=== PATIENT | female | born 1975 | race Caucasian/White ===

== ENCOUNTER 2024-10-15 09:51 | Emergency (ER) | payer BC ==
[~2024-10-15] VITALS: Ht 152.4 cm; Wt 50.8 kg
[2024-10-15 09:51] VITALS: TEMP 98.6
[2024-10-15 10:35] LABS: BASOPHILS % (AUTO) 0.5 % (0.0-2.0); EOSINOPHILS % (AUTO) 0.3 % (0.0-6.0); HEMATOCRIT 41 % (33-45); HEMOGLOBIN 14.2 g/dL (11.5-14.8); LYMPHOCYTES # (AUTO) 1.1 K/uL (0.8-4.8); LYMPHOCYTES % (AUTO) 11.8 % (20.0-44.0); MEAN CORPUSCULAR HEMOGLOBIN 33 PG (26.0-33.0); MEAN CORPUSCULAR HGB CONC 35 g/dl (31.0-36.0); MEAN CORPUSCULAR VOLUME 94 fL (82-100); MONOCYTES # (AUTO) 0.9 K/uL (0.1-1.30); NEUTROPHILS # (AUTO) 7.1 K/uL (1.8-8.9); NEUTROPHILS % (AUTO) 77.4 % (43.0-81.0); PLATELET COUNT (AUTO) 262 K/uL (150-450); RED BLOOD CELL COUNT(AUTO) 4.36 MIL/uL (4.0-5.2); RED CELL DISTRIBUTION WIDTH 11.9 % (11.5-15.0); WHITE BLOOD COUNT (AUTO) 9.1 K/uL (4.3-11.0)
[2024-10-15 10:36] LABS: ERYTHROCYTE SEDIMENTATION RATE 2 MM/HR (0-30)
[2024-10-15 10:44] LABS: CALCIUM, SERUM 9.7 mg/dL (8.5-10.1); CREATININE 0.9 mg/dL (0.6-1.3); POTASSIUM 3.7 mmol/L (3.5-5.1)
[2024-10-15] MEDS ORDERED: diphenhydrAMINE HCL 50 MG/ML VIAL ONE (10:49)
[2024-10-15] MEDS ORDERED: KETOROLAC TROMETHAMINE 15 MG/ML VIAL ONE (10:50)
[2024-10-15] MEDS ORDERED: PROCHLORPERAZINE EDISYLATE 10 MG/2 ML VIAL ONE (10:50)
[2024-10-15] MEDS: IV NS 0.9% 1,000 ML BAG IV ONE (11:05)
[2024-10-15] MEDS: diphenhydrAMINE HCL 50 MG/ML VIAL IV ONE (11:06)
[2024-10-15] MEDS: KETOROLAC TROMETHAMINE 15 MG/ML VIAL IV ONE (11:10)
[2024-10-15] MEDS: PROCHLORPERAZINE EDISYLATE 10 MG/2 ML VIAL IVP ONE (11:15)
[2024-10-15] MEDS: NICARDIPINE IN NACL, ISO-OSM 200 ML IV PRN (12:25)
[2024-10-15] MEDS ORDERED: MORPHINE SULFATE INJ 4 MG/ML DISP.SYRIN ONE (12:39)
[2024-10-15] MEDS ORDERED: ONDANSETRON HCL/PF 4 MG/2 ML VIAL ONE (12:39)
[2024-10-15] MEDS: ONDANSETRON HCL/PF 4 MG/2 ML VIAL IVP ONE (12:43)
[2024-10-15] MEDS: MORPHINE SULFATE INJ 2 MG/ML DISP.SYRIN IV ONE (12:49)
[2024-10-15 13:45] VITALS: BP 124/74; O2SAT 95
== END 2024-10-15 13:55 ==
LOC: ER 09:55
DX: I60.9 Nontraumatic subarachnoid hemorrhage, unspecified (principal); Z60.2 Problems related to living alone; Z20.822 Contact with and (suspected) exposure to COVID-19
CPT/HCPCS: 99291; 96374; 96375; 70450; 71045; 96361; 87426; 87804 ×2; 85025; 80048; 85652; 36415; 86140; J1885; J0780; J1200; J2270; J2405; J7030; A4223